=== PATIENT | female | born 1980 | race African-American/Black ===

== ENCOUNTER 2024-06-27 20:28 | Emergency (ER) | payer MEDICAID, OTHER ==
[~2024-06-27] VITALS: Ht 165.1 cm; Wt 72.7 kg
[2024-06-27 20:32] VITALS: O2SAT 100
[2024-06-27 20:51] LABS: COVID AG,FIA SOURCE NASAL SWAB
[2024-06-27 21:17] LABS: SARS-COV2 (COVID) ANTIGEN,FIA Negative (Negative)
[2024-06-27 21:20] LABS: INFLUENZA TYPE A NEGATIVE FOR TYPE A (NEGATIVE); INFLUENZA TYPE B NEGATIVE FOR TYPE B (NEGATIVE)
[2024-06-27 22:27] VITALS: BP 132/89; PULSE 80; RESP 18; TEMP 98.7
[2024-06-28] MEDS ORDERED: ALBU18HF12 IH (00:21)
[2024-06-28] MEDS ORDERED: AZIT250T9 PO (00:21)
[2024-06-28] MEDS ORDERED: PRED-554 PO (00:21)
[2024-06-28] MEDS: ALBUTEROL SULFATE 2.5 MG/0.5 ML NEB SOLUTION NEB ONE (01:03)
[2024-06-28] MEDS: IPRATROPIUM BROMIDE 0.5 MG/2.5 ML NEB SOLUTION NEB ONE (01:03)
== END 2024-06-28 00:47 | disposition home or self-care (01) ==
LOC: EMS 20:28
DX: J40 Bronchitis, not specified as acute or chronic (principal); J18.0 Bronchopneumonia, unspecified organism; R05.9 Cough, unspecified; F17.210 Nicotine dependence, cigarettes, uncomplicated; Z20.822 Contact with and (suspected) exposure to COVID-19
CPT/HCPCS: 71045; 87804; 99284